=== PATIENT | male | born 2000 | race Caucasian/White ===

== ENCOUNTER 2021-07-12 21:18 | Emergency (ER) | payer SELFPAY ==
--- NOTE | 2021-07-12 | ECG_ITS ---
Test Reason : OD Blood Pressure : / mmHG Vent. Rate : 155 BPM Atrial Rate : 155 BPM P-R Int : 128 ms QRS Dur : 076 ms QT Int : 324 ms P-R-T Axes : 069 084 069 degrees QTc Int : 520 ms Sinus tachycardia with occasional Premature ventricular complexes and Fusion complexes Septal infarct , age undetermined Abnormal ECG No previous ECGs available Referred By: Generic ED Physician Electronically Signed By:MAUREEN GEIGER MD
[2021-07-12 21:19] VITALS: BP 151/52; PULSE 158; RESP 22; TEMP 36.2; O2SAT 100; BMI 24.4
[2021-07-12 21:24] VITALS: BP 138/70; PULSE 112; RESP 21; O2SAT 100
[2021-07-12 21:30] VITALS: BP 139/70; PULSE 158; RESP 22; O2SAT 100
--- NOTE | 2021-07-12 21:30 | ED.ARRPALP ---
HPI - Arrhythmia/Palpitations General Chief Complaint: Overdose Stated Complaint: med OD Time Seen by Provider: 07/12/21 21:27 Source: patient Mode of arrival: ambulatory Limitations: no limitations History of Present Illness HPI narrative: Patient with no CP history of depression or substance abuse in the past was not able to sleep properly and wanted to sleep on proper time was feeling sleepy during daytime as he did not sleep for last 2 days wanted to stay awake during daytime so the can sleep in the night sohe took 600 mg of caffeine pills and snorted 2 X 20 mg Adderall tablet comes here with palpitation heart rate in 160s very anxious on arrival denies any cocaine use of any other substance abuse Related Data Allergies Allergy/AdvReac Type Severity Reaction Status Date / Time No Known Allergies Allergy Verified 07/12/21 21:19 Review of Systems Review of Systems: Yes all other systems are reviewed and are negative [facility] Social History Social History Advance Directives: No Advance Directives Information Provided: No Physical Exam Vital Signs: Vital Signs: Last Vital Signs Temp 97.1 F 07/12/21 21:19 Pulse 83 07/12/21 23:13 Resp 16 07/12/21 23:13 BP 127/58 L 07/12/21 23:13 Pulse Ox 99 07/12/21 23:13 BMI result Body Mass Index 24.4 Appearance: Alert. Oriented X3. Anxious Eyes: PERRLA ENT: Pharynx normal. Oral Mucosa moist Neck: Normal inspection. Neck supple. CVS: Sinus tachycardia occasional PVCs Pulses normal. Respiratory: No respiratory distress. Equal air entry bilateral, no wheezing/rales/rhonchi Abdomen: Soft and nontender. Bowel sounds are present, no mass palpable, no CVA tenderness Skin: Skin warm and dry. Normal skin color. Normal skin turgor. Extremities: No lower extremity edema. No calf tenderness Neuro: Oriented X 3. MDM - Arrhythmia/Palpitations MDM Narrative Medical decision making narrative: PATIENT HAS SINUS RHYTHM WITH HEART RATE AROUND 100 FEELING MUCH BETTER WILL DISCHARGE PATIENT HOME NO SIGNS OF INFECTION HAD 1 L OF IV FLUID Lab Data Attestation: I reviewed the patient's lab results. Result diagrams: 07/12/21 21:29 07/12/21 21:29 Labs: Lab Results 07/12/21 07/12/21 07/12/21 Range/Units 21:29 21:29 21:29 WBC 19.9 H (4.8-10.8) X10*3/uL RBC 5.82 H (4.60-5.80) X10*6/uL Hgb 16.7 (14.0-18.0) g/dl Hct 47.7 (42.0-52.0) % MCV 82.0 (80.0-98.0) fL MCH 28.7 (27.0-33.0) pg MCHC 35.0 (31.0-36.0) g/dl RDW 13.7 (11.0-16.0) % Plt Count 446 H (160-400) X10*3/uL MPV 10.5 (9.4-12.4) fL Immature Gran % (Auto) 0.7 H (0.0-0.4) % Neut % (Auto) 64.1 (45-73) % Lymph % (Auto) 27.6 (20-40) % [place] % (Auto) 5.8 (2-11) % Eos % (Auto) 1.3 (0-4) % Baso % (Auto) 0.5 (0-2) % Lymph # (Auto) 5.5 H (1.2-4.9) X10*3/uL [place] # (Auto) 1.2 (0.1-1.2) X10*3/uL Eos # (Auto) 0.3 (0.0-0.4) X10*3/uL Baso # (Auto) 0.1 (0.0-0.2) X10*3/uL Abs Immat Gran (auto) 0.13 H (0.00-0.03) X10*3/uL Absolute Neuts (auto) 12.8 H (2.0-8.3) x10*3/uL Absolute Nucleated RBC 0.000 (0.0-0.012) X10*3/uL Nucleated RBC % (auto) 0.0 (0.0-0.2) /100WBC Smear Tech's Comments VERIFIED Sodium 141 (135-145) mmol/L Potassium 3.2 L (3.3-5.1) mmol/L Chloride 105 (96-108) mmol/L Carbon Dioxide 19 L (22-29) mmol/L Anion Gap 20 (12-20) BUN 17 H (9-16) mg/dL Creatinine 1.36 (0.5-1.4) mg/dL Estim Creat Clear Calc 95.0 Estimated GFR > 60 Random Glucose 176 H (60-115) mg/dL Calcium 10.3 H (8.4-10.2) mg/dL Total Bilirubin 0.7 (0.0-1.0) mg/dL AST 41 H (5-37) U/L ALT 39 (0-40) U/L Alkaline Phosphatase 102 (39-117) U/L Troponin I High Sens < 3.5 (<3.5-35.0) ng/L Total Protein 8.0 (6.5-8.0) g/dL Albumin 5.2 H (3.5-5.0) g/dL ECG Data Attestation: I personally reviewed and interpreted this ECG as follows: Interpretation: Sinus tachycardia with heart rate 155 beats per minute occasional unifocal PVCs no acute STT wave changes no acute ischemia Discharge Plan Discharge Clinical Impression: Accidental drug ingestion Patient Disposition: Home, Self-Care Instructions: Heart Palpitations (ED), Adult Overdose (ED) Additional Instructions: Do not take non-prescribed medication do not drink too much caffeine Drink plenty of fluids Report to ER if any concern Interventions: ED Discharge Assessment Last Done: 07/12/21 23:18 Discharge Date/Time: 07/12/21 23:19
[2021-07-12] MEDS: Metoprolol Tartrate 5 MG/5 ML VIAL IVPUSH (21:35)
[2021-07-12] MEDS: 0.9 % Sodium Chloride 1,000 ML 999 ML IV (21:35)
[2021-07-12 21:48] LABS: Basophils Percent Auto 0.5 % (0-2); SCAN SMEAR FLAG 1
[2021-07-12 21:56] LABS: Alanine Aminotransferase 39 U/L (0-40); Albumin Level 5.2 g/dL (3.5-5.0); Alkaline Phosphatase 102 U/L (39-117); Anion Gap 20 (12-20); Aspartate Amino Transferase 41 U/L (5-37); Bilirubin Total 0.7 mg/dL (0.0-1.0); Blood Urea Nitrogen 17 mg/dL (9-16); Calcium 10.3 mg/dL (8.4-10.2); Carbon Dioxide 19 mmol/L (22-29); Chloride 105 mmol/L (96-108); Estimated Glomerular Filt Rate > 60; Glucose Random 176 mg/dL (60-115); Potassium 3.2 mmol/L (3.3-5.1); Sodium 141 mmol/L (135-145)
[2021-07-12 22:00] LABS: Troponin-I High Sensitivity < 3.5 ng/L (<3.5-35.0)
[2021-07-12 22:07] LABS: Basophils Absolute Auto 0.1 X10*3/uL (0.0-0.2); Eosinophils Absolute Auto 0.3 X10*3/uL (0.0-0.4); Eosinophils Percent Auto 1.3 % (0-4); Hematocrit 47.7 % (42.0-52.0); Hemoglobin 16.7 g/dl (14.0-18.0); Imm Gran Abs Auto 0.13 X10*3/uL (0.00-0.03); Imm Gran Pct Auto 0.7 % (0.0-0.4); Lymphocytes Absolute Auto 5.5 X10*3/uL (1.2-4.9); Lymphocytes Percent Auto 27.6 % (20-40); MANUAL DIFF FLAG SCAN; Mean Corpuscular Hemoglobin 28.7 pg (27.0-33.0); Mean Platelet Volume 10.5 fL (9.4-12.4); Monocytes Absolute Auto 1.2 X10*3/uL (0.1-1.2); Monocytes Percent Auto 5.8 % (2-11); Neutrophils Absolute Auto 12.8 x10*3/uL (2.0-8.3); Neutrophils Percent Auto 64.1 % (45-73); Platelet Count 446 X10*3/uL (160-400); Red Blood Count 5.82 X10*6/uL (4.60-5.80); Red Cell Distribution Width 13.7 % (11.0-16.0); White Blood Count 19.9 X10*3/uL (4.8-10.8)
[2021-07-12 23:00] LABS: SLIDE REVIEW VERIFIED
[2021-07-12 23:13] VITALS: BP 127/58; PULSE 83; RESP 16; O2SAT 99
== END 2021-07-12 23:19 | disposition home or self-care (01) ==
PROVIDERS: Emergency Provider Internal Medicine
DX: R00.2 Palpitations (principal); R00.0 Tachycardia, unspecified; F41.9 Anxiety disorder, unspecified; T43.611A Poisoning by caffeine, accidental (unintentional), initial encounter; T43.621A Poisoning by amphetamines, accidental (unintentional), initial encounter; Y92.032 Bedroom in apartment as the place of occurrence of the external cause
CPT/HCPCS: 36415; 80053; 84484; 85025; 93005; 96361; 96374; 99284